=== PATIENT | male | born 1955 | race Caucasian/White ===

== ENCOUNTER 2017-08-01 09:13 | Observation (INO) | payer OTHER ==
[~2017-08-01] VITALS: Ht 185.4 cm; Wt 80.0 kg
[2017-08-01 09:15] VITALS: BP 242/125; PULSE 84; RESP 17; TEMP 97.8; O2SAT 100
--- NOTE | 2017-08-01 09:55 | PD ---
HPI Chief Complaint: Dizziness Time Seen by Provider: 09:55 Travel History International Travel<30 days: No Contact w/Intl Traveler<30days: No Traveled to known affect area: No History of Present Illness HPI 62-year-old male came to the emergency room with history of feeling lightheaded and off balance for past 2 weeks. Patient says this is progressively worsening. He started checking his blood pressure and noticed that his blood pressure is going high. Patient says he felt exactly the same way when he had his heart attack in 1999. He was scared and anxious but finally decided to come to the emergency room today. His blood pressure in triage was 220. Patient says he's been taking all his medications like he supposed to. He has some chest discomfort in the upper part of his chest. No history of syncopal episode. Pain is on and off with no identified aggravating or relieving factors. He seems very anxious. PFSH Past Medical History Narrative Medical List of his past medical, surgical, social and family history is reviewed from the nursing note. Cardiac Catheterization: Yes (1 STENT LEFT LAD) Cardiovascular Problems: Yes (STENTS, HTN, ABLATION) Chest Pain: Yes Diminished Hearing: No Hypertension: Yes Influenza Vaccination: No Social History Alcohol Use: Yes (BEER AND WINE OCCASIONALLY ) Tobacco Use: No Substance Use: No Allergies-Medications (Allergen,Severity, Reaction): Coded Allergies: erythromycin base (Verified Allergy, Unknown, 08/01/17) Comments List of his allergies reviewed from the nursing note. Reported Meds & Prescriptions Reported Meds & Active Scripts Active Labetalol (Labetalol HCl) 100 Mg Tab 100 Mg PO BID 30 Days Reported Testosterone Cypionate Inj (Testosterone Cypionate) 200 Mg/Ml Inj 200 Mg IM MONTHLY Aspirin Low Dose (Aspirin) 81 Mg Chew 81 Mg CHEW DAILY Crestor (Rosuvastatin Calcium) 20 Mg Tab 20 Mg PO DAILY Cardizem CD 24 HR (Diltiazem CD 24 HR) 120 Mg Caper 120 Mg PO DAILY Hydrochlorothiazide 25 Mg Tab 25 Mg PO DAILY Diovan (Valsartan) 320 Mg Tab 320 Mg PO DAILY Tekturna (Aliskiren) 300 Mg Tab 300 Mg PO DAILY Narrative Medication List of his home medications reviewed from the nursing note. Review of Systems Except as stated in HPI: all other systems reviewed are Neg Cardiovascular: Positive: Chest Pain or Discomfort Physical Exam Narrative GENERAL: Awake, alert, anxious, mild distress SKIN: Focused skin assessment warm/dry. HEAD: Atraumatic. Normocephalic. EYES: Pupils equal and round. No scleral icterus. No injection or drainage. ENT: No nasal bleeding or discharge. Mucous membranes pink and moist. NECK: Trachea midline. No JVD. CARDIOVASCULAR: Regular rate and rhythm. No murmur appreciated. RESPIRATORY: No accessory muscle use. Clear to auscultation. Breath sounds equal bilaterally. GASTROINTESTINAL: Abdomen soft, non-tender, nondistended. Hepatic and splenic margins not palpable. MUSCULOSKELETAL: No obvious deformities. No clubbing. No cyanosis. No edema. NEUROLOGICAL: Awake and alert. No obvious cranial nerve deficits. Motor grossly within normal limits. Normal speech. PSYCHIATRIC: Appropriate mood and affect; insight and judgment normal. Data Data Last Documented VS Orders Orders Electrocardiogram (08/01/17 09:57) Basic Metabolic Panel (Bmp) (08/01/17 09:57) Ckmb (Isoenzyme) Profile (08/01/17 09:57) Complete Blood Count With Diff (08/01/17 09:57) Magnesium (Mg) (08/01/17 09:57) Prothrombin Time / Inr (Pt) (08/01/17 09:57) Act Partial Throm Time (Ptt) (08/01/17 09:57) Troponin I (08/01/17 09:57) Chest, Single Ap (08/01/17 09:57) Ecg Monitoring (08/01/17 09:57) Bilateral Bp Monitoring (08/01/17 09:57) Iv Access Insert/Monitor (08/01/17 09:57) Oximetry (08/01/17 09:57) Oxygen Administration (08/01/17 09:57) Sodium Chloride 0.9% Flush (Ns Flush) (08/01/17 10:00) Clonidine (Catapres) (08/01/17 10:00) Ct Brain W/O Iv Contrast(Rout) (08/01/17 ) Drug Screen, Random Urine (08/01/17 09:57) Labetalol Inj (Trandate Inj) (08/01/17 10:15) CKMB (08/01/17 10:15) CKMB% (08/01/17 10:15) Admit Order (Ed Use Only) (08/01/17 11:03) Labs Laboratory Tests Test 08/01/17 10:15 White Blood Count 6.9 TH/MM3 Red Blood Count 4.63 MIL/MM3 Hemoglobin 15.2 GM/DL Hematocrit 44.6 % Mean Corpuscular Volume 96.3 FL Mean Corpuscular Hemoglobin 32.9 PG Mean Corpuscular Hemoglobin Concent 34.2 % Red Cell Distribution Width 13.3 % Platelet Count 268 TH/MM3 Mean Platelet Volume 8.4 FL Neutrophils (%) (Auto) 72.3 % Lymphocytes (%) (Auto) 16.5 % Monocytes (%) (Auto) 10.3 % Eosinophils (%) (Auto) 0.4 % Basophils (%) (Auto) 0.5 % Neutrophils # (Auto) 5.0 TH/MM3 Lymphocytes # (Auto) 1.1 TH/MM3 Monocytes # (Auto) 0.7 TH/MM3 Eosinophils # (Auto) 0.0 TH/MM3 Basophils # (Auto) 0.0 TH/MM3 CBC Comment AUTO DIFF Differential Comment AUTO DIFF CONFIRMED Prothrombin Time 9.9 SEC Prothromb Time International Ratio 1.0 RATIO Activated Partial Thromboplast Time 23.3 SEC Blood Urea Nitrogen 13 MG/DL Creatinine 0.91 MG/DL Random Glucose 99 MG/DL Calcium Level 9.1 MG/DL Magnesium Level 2.3 MG/DL Sodium Level 139 MEQ/L Potassium Level 3.8 MEQ/L Chloride Level 103 MEQ/L Carbon Dioxide Level 29.5 MEQ/L Anion Gap 7 MEQ/L Estimat Glomerular Filtration Rate 84 ML/MIN Total Creatine Kinase 139 U/L Creatine Kinase MB 2.8 NG/ML Troponin I LESS THAN 0.02 NG/ML Urine Opiates Screen NEG Urine Barbiturates Screen NEG Urine Amphetamines Screen NEG Urine Benzodiazepines Screen NEG Urine Cocaine Screen NEG Urine Cannabinoids Screen NEG MDM Medical Decision Making Medical Screen Exam Complete: Yes Emergency Medical Condition: Yes Medical Record Reviewed: Yes Interpretation(s) Twelve-lead EKG was reviewed by me. Normal sinus rhythm, normal axis, nonspecific ST-T wave changes, PVC. Heart rate of 80 bpm. Differential Diagnosis ACS, non-STEMI, hypertensive urgency Narrative Course 10:58 AM patient was given 20 mg of IV labetalol and by mouth clonidine for his hypertension. Blood test results of back and within acceptable limits. Head CT is negative. Given his significant risk factors I would like to admit him to the chest pain center to be seen by the contracts advisor and rule out ACS. Procedures EKG Prior to Arrival: No Diagnosis Primary Impression: Chest pain Qualified Codes: R07.9 - Chest pain, unspecified Additional Impression: Uncontrolled hypertension Admitting Information Admitting Physician Requests: Observation Scripts Labetalol (Labetalol) 100 Mg Tab 100 MG PO BID for Blood Pressure Management for 30 Days, #60 TAB 0 Refills Prov: Jayme Hoffmann 08/01/17 Shikha Calero MD Aug 01, 2017 09:55
[2017-08-01] MEDS ORDERED: SODIUM CHLORIDE 0.9% FLUSH 10 ML FLUSH IVF PRN (10:00)
[2017-08-01] MEDS ORDERED: cloNIDine HCL 0.2 MG TAB PO ONE (10:00)
[2017-08-01] MEDS ORDERED: [UNRECOGNIZED DRUG - CODE] PO (10:06)
[2017-08-01] MEDS ORDERED: DIOV320T PO (10:06)
[2017-08-01] MEDS ORDERED: CARD120C4 PO (10:06)
[2017-08-01] MEDS ORDERED: HYDR25TA5 PO (10:06)
[2017-08-01] MEDS ORDERED: ASPI81CH6 CHEW (10:06)
[2017-08-01] MEDS ORDERED: ROSU20 PO (10:06)
[2017-08-01] MEDS ORDERED: LABETALOL HCL 100 MG/20 ML VIAL IV PUSH ONE (10:15)
[2017-08-01 10:26] LABS: BASOPHIL % 0.5 % (0.0-2.0); EOSINOPHIL % 0.4 % (0.0-4.0); HEMATOCRIT 44.6 % (39.0-51.0); LYMPH % 16.5 % (9.0-44.0); LYMPHOCYTE # 1.1 TH/MM3 (1.0-4.8); MEAN CELL VOLUME 96.3 FL (80.0-100.0); MEAN CORPUSCULAR HEMOGLOBIN 32.9 PG (27.0-34.0); MEAN CORPUSCULAR HGB CONC 34.2 % (32.0-36.0); MONO % 10.3 % (0.0-8.0); NEUT % 72.3 % (16.0-70.0); PLATELET COUNT 268 TH/MM3 (150-450); RED BLOOD COUNT 4.63 MIL/MM3 (4.50-5.90); RED CELL DISTRIBUTION WIDTH 13.3 % (11.6-17.2); WHITE BLOOD COUNT 6.9 TH/MM3 (4.0-11.0)
[2017-08-01 10:27] LABS: HEMO FLAGS AUTO DIFF
--- NOTE | 2017-08-01 10:28 | RADRPT ---
EXAM DATE/TIME: 08/01/2017 10:18 [facility] COMPARISON: No previous studies available for comparison. INDICATIONS : Pressure in head, dizziness, hypertension. RADIATION DOSE: 32.65 CTDIvol (mGy) MEDICAL HISTORY : Cardiovascular disease. Hypertension. SURGICAL HISTORY : None. ENCOUNTER: Initial ACUITY: 1 day PAIN SCALE: 2/10 LOCATION: Bilateral temporal TECHNIQUE: Multiple contiguous axial images were obtained of the head. Using automated exposure control and adj ustment of the mA and/or kV according to patient size, radiation dose was kept as low as reasonably a chievable to obtain optimal diagnostic quality images. DICOM format image data is available electro nically for review and comparison. FINDINGS: CEREBRUM: The ventricles are mildly enlarged for age. No evidence of midline shift, mass lesion, hemorrhage or acute infarction. No extra-axial fluid collections are seen. POSTERIOR FOSSA: The cerebellum and brainstem are intact. The 4th ventricle is midline. The cerebellopontine angle i s unremarkable. EXTRACRANIAL: The visualized portion of the orbits is intact. SKULL: The calvaria is intact. No evidence of skull fracture. CONCLUSION: 1. Mild ventriculomegaly 2. No evidence of acute infarct, hemorrhage, mass or edema. Bijan Arias MD on August 01, 2017 at 10:24 Board Certified Radiologist. This report was verified electronically.
[2017-08-01 10:34] VITALS: BP 178/108; PULSE 69; RESP 13; O2SAT 99
[2017-08-01 10:37] LABS: APTT (PATIENT) 23.3 SEC (24.3-30.1); PROTHROMBIN TIME - PATIENT 9.9 SEC (9.8-11.6)
[2017-08-01 10:50] LABS: ANION GAP 7 MEQ/L (5-15); BICARBONATE 29.5 MEQ/L (21.0-32.0); BLOOD UREA NITROGEN 13 MG/DL (7-18); CHLORIDE 103 MEQ/L (98-107); GLOMERULAR FILTRATION RATE 84 ML/MIN (>89); MAGNESIUM 2.3 MG/DL (1.5-2.5); POTASSIUM 3.8 MEQ/L (3.5-5.1); SODIUM (NA) 139 MEQ/L (136-145)
--- NOTE | 2017-08-01 10:52 | RADRPT ---
EXAM DATE/TIME: 08/01/2017 10:10 [facility] COMPARISON: No previous studies available for comparison. INDICATIONS : Chest pain. MEDICAL HISTORY : Cardiovascular disease. Hypertension SURGICAL HISTORY : None. ENCOUNTER: Initial ACUITY: 1 day PAIN SCORE: 3/10 LOCATION: Left upper chest FINDINGS: A single view of the chest demonstrates the lungs to be symmetrically aerated without evidence of mas s, infiltrate or effusion. The cardiomediastinal contours are unremarkable. Osseous structures are intact. CONCLUSION: No acute disease. Bijan Arias MD on August 01, 2017 at 10:50 Board Certified Radiologist. This report was verified electronically.
[2017-08-01 10:54] LABS: CREATINE KINASE 139 U/L (39-308)
[2017-08-01] MEDS ORDERED: TEST200I12 IM (10:54)
[2017-08-01 10:55] VITALS: BP 167/99; PULSE 70; RESP 12; O2SAT 99
[2017-08-01 11:06] LABS: CKMB 2.8 NG/ML (0.5-3.6)
[2017-08-01 11:08] LABS: SCAN/DIFF AUTO DIFF CONFIRMED
[2017-08-01] MEDS ORDERED: RESP: ALBUTEROL 2.5 MG/IPRATROPIUM 0.5 MG NEB (PRN) INH (11:45)
[2017-08-01] MEDS ORDERED: ACETAMINOPHEN 500 MG CPLT PO PRN (11:45)
[2017-08-01] MEDS ORDERED: ONDANSETRON HCL 4 MG/2 ML VIAL IV PUSH PRN (11:45)
[2017-08-01] MEDS ORDERED: ALPRAZolam 0.25 MG TAB PO PRN (11:45)
[2017-08-01] MEDS ORDERED: ACETAMINOPHEN/HYDROcodone 325 MG/7.5 MG TAB PO PRN (11:45)
[2017-08-01] MEDS ORDERED: cloNIDine HCL 0.1 MG TAB PO PRN (11:45)
[2017-08-01] MEDS ORDERED: PANTOPRAZOLE SOD 40 MG DELAYED RELEASE TAB PO SCH (12:00)
[2017-08-01 12:03] VITALS: BP 158/85
--- NOTE | 2017-08-01 12:34 | HHI.HP ---
HPI Primary Care Physician Jarocho Laureano MD Chief Complaint High blood pressure History of Present Illness This is a 62-year-old male with history of CAD, hypertension, hyperlipidemia that presents to ED with complaints of elevated blood pressure, dizziness, and feeling antsy. Patient states his blood pressure has been running higher than normal over last 2 or 3 weeks. He discontinued all his medications as directed by his primary care physician. He saw the physician that was covering for his primary care doctor yesterday for elevated blood pressures. Medications were not changed, states he is given literature to explain him signs and symptoms of a stroke. His pressures have continued to be high. This morning he felt that his high so rechecked it and it was 167/94 at home. He was able to go to the gym but didn't stay long. Start feeling dizzy and felt very antsy. Became concerned and came to the emergency room. Denies having chest discomfort. He felt a little short of breath. No nausea or diaphoresis. Was having pressure has had which states that has improved since being in the ED. His initial blood pressure reading in the emergency part was 242/125. The ED physician gave 20 mg of IV labetalol. Pressure currently is 152/95. As mentioned above, he has CAD. States he has not seen a surgical dressing maker in about 5 years. Last stress test was 5 or 6 years ago. Believes was okay. Has not had a heart catheterization since 1999 which time he had a stent to the LAD. Feeling antsy concerned her. He states he thought that way when he had his heart attack. Although he also had pressure in his chest when he had his heart attack. Denies having any pressure or other types of discomforts in his chest. Denies recent travel. Denies recent illness. He thinks some of it may be related to work. States he is working 3 jobs which he thinks may be too much format his age. Review of Systems General: Patient denies fevers, chills recent, and recent travel HEENT: Complains of a pressure headache. Patient denies sore throat and difficulty swallowing. Cardiovascular: Has the chest discomfort as mentioned above. Denies sensation of heart beating rapidly or irregularly. No syncope. Respiratory: He was short of breath. Denies of breath or inspirational chest discomfort. Denies coughing wheezing or hemoptysis. GI: Patient denies nausea, vomiting, diarrhea, abdominal pain, bloody stools. Musculoskeletal: Patient denies joint pain or edema. Denies calf pain or edema. Neurovascular: Complains of pressure headache but states that has improved as his blood pressure .is coming down Patient denies numbness, tingling, weakness in extremities. [place] dizzy. Endocrine: Denies polyuria and polydipsia. Hematologic: Denies easy bruising. Skin: Denies rash or itching. Past Family Social History Allergies: Coded Allergies: erythromycin base (Verified Allergy, Unknown, 08/01/17) Past Medical History CAD with reported stent of the LAD in 1999. Hypertension, hyperlipidemia, paroxysmal atrial fibrillation with an ablation about 6 years ago. Believes he has been in sinus rhythm since. Past Surgical History Cardiac catheterization with stenting in 1999. An ablation for A. fib about 6 years ago. Reported Medications Reported Meds & Active Scripts Active Reported Testosterone Cypionate Inj (Testosterone Cypionate) 200 Mg/Ml Inj 200 Mg IM MONTHLY Aspirin Low Dose (Aspirin) 81 Mg Chew 81 Mg CHEW DAILY Crestor (Rosuvastatin Calcium) 20 Mg Tab 20 Mg PO DAILY Cardizem CD 24 HR (Diltiazem CD 24 HR) 120 Mg Caper 120 Mg PO DAILY Hydrochlorothiazide 25 Mg Tab 25 Mg PO DAILY Diovan (Valsartan) 320 Mg Tab 320 Mg PO DAILY Tekturna (Aliskiren) 300 Mg Tab 300 Mg PO DAILY Active Ordered Medications Current Medications Medications (Trade) Dose Ordered Sig/Purnima Route Start Time Stop Time Status Last Admin (NS Flush) 2 ml UNSCH PRN IVF 08/01/17 10:00 (Tylenol) 500 mg Q4H PRN PO 08/01/17 11:45 (Combs 7.5-325 Mg) 1 tab Q4H PRN PO 08/01/17 11:45 (Zofran Inj) 4 mg Q6H PRN IV PUSH 08/01/17 11:45 (Protonix) 40 mg DAILY PO 08/01/17 12:00 (Aspirin) 325 mg DAILY PO 08/02/17 09:00 (Xanax) 0.25 mg Q8H PRN PO 08/01/17 11:45 (Duoneb Neb) 1 ampule Q4HR NEB PRN INH 08/01/17 11:45 (Catapres) 0.1 mg Q4H PRN PO 08/01/17 11:45 (Tekturna) 300 mg DAILY PO 08/02/17 09:00 UNV (Cardizem Cd) 120 mg DAILY PO 08/02/17 09:00 (Hydrodiuril) 25 mg DAILY PO 08/02/17 09:00 UNV (Diovan) 320 mg DAILY PO 08/02/17 09:00 UNV (Lipitor) 40 mg DAILY PO 08/02/17 09:00 Family History There is family history of CAD. Social History Patient smokes cigarettes in high school but has not smoked since. He has on average 2-3 beers or a couple glass of wine or 5 times a week. Denies illicit drugs. Physical Exam Vital Signs Vital Signs Date Time Temp Pulse Resp B/P (MAP) Pulse Ox O2 Delivery O2 Flow Rate FiO2 08/01/17 12:03 78 15 158/85 (109) 100 08/01/17 10:55 70 12 167/99 (121) 99 Room Air 08/01/17 10:34 69 13 178/108 (131) 99 Room Air 08/01/17 10:23 99 Room Air 08/01/17 09:32 99 Room Air 08/01/17 09:15 97.8 84 17 242/125 (164) 100 Room Air Physical Exam GENERAL: This is a well-nourished, well-developed patient, in no apparent distress. Patient speaks in clear complete sentences. Patient is pleasant. HEENT: Head is atraumatic and normocephalic. Neck is supple without lymphadenopathy and trachea is midline. No JVD or carotid bruits. CARDIOVASCULAR: Regular rate and rhythm without murmurs, gallops, or rubs. RESPIRATORY: Clear to auscultation. Breath sounds equal bilaterally. No wheezes , rales, or rhonchi. Chest wall is nontender. No use of accessory muscles. GASTROINTESTINAL: Abdomen is nontender, nondistended. Abdomen soft. No obvious pulsatile mass or bruit. No CVA tenderness. Strong femoral pulses bilaterally. Normal bowel sounds in all quadrants. MUSCULOSKELETAL: Patient is moving upper and lower extremities freely. No calf tenderness or edema, no Homans sign. Strong pulses in upper and lower extremities. NEUROLOGICAL: Patient is alert and oriented. Cranial nerves 2-12 are grossly intact. No focal deficits and speech is clear. SKIN: No rash and turgor is normal. Laboratory Laboratory Tests Test 08/01/17 10:15 White Blood Count 6.9 Red Blood Count 4.63 Hemoglobin 15.2 Hematocrit 44.6 Mean Corpuscular Volume 96.3 Mean Corpuscular Hemoglobin 32.9 Mean Corpuscular Hemoglobin Concent 34.2 Red Cell Distribution Width 13.3 Platelet Count 268 Mean Platelet Volume 8.4 Neutrophils (%) (Auto) 72.3 Lymphocytes (%) (Auto) 16.5 Monocytes (%) (Auto) 10.3 Eosinophils (%) (Auto) 0.4 Basophils (%) (Auto) 0.5 Neutrophils # (Auto) 5.0 Lymphocytes # (Auto) 1.1 Monocytes # (Auto) 0.7 Eosinophils # (Auto) 0.0 Basophils # (Auto) 0.0 CBC Comment AUTO DIFF Differential Comment AUTO DIFF CONFIRMED Prothrombin Time 9.9 Prothromb Time International Ratio 1.0 Activated Partial Thromboplast Time 23.3 Blood Urea Nitrogen 13 Creatinine 0.91 Random Glucose 99 Calcium Level 9.1 Magnesium Level 2.3 Sodium Level 139 Potassium Level 3.8 Chloride Level 103 Carbon Dioxide Level 29.5 Anion Gap 7 Estimat Glomerular Filtration Rate 84 Total Creatine Kinase 139 Creatine Kinase MB 2.8 Troponin I LESS THAN 0.02 Urine Opiates Screen NEG Urine Barbiturates Screen NEG Urine Amphetamines Screen NEG Urine Benzodiazepines Screen NEG Urine Cocaine Screen NEG Urine Cannabinoids Screen NEG Result Diagram: 08/01/17 1015 08/01/17 1015 Imaging Last 48 hours Impressions Chest X-Ray 08/01/17 0957 Signed Impressions: Service Date/Time: July 10:10 - CONCLUSION: No acute disease. Bijan Arias MD Head CT 08/01/17 0000 Signed Impressions: Service Date/Time: July 10:18 - CONCLUSION: 1. Mild ventriculomegaly 2. No evidence of acute infarct, hemorrhage, mass or edema. Bijan Arias MD Course Initial EKG is sinus rhythm without significant ST segment depressions or elevations. Caprini VTE Risk Assessment Caprini VTE Risk Assessment: Mod/High Risk (score >= 2) Caprini Risk Assessment Model Point Value = 1 Point Value = 2 Point Value = 3 Point Value = 5 Age 41-60 Minor surgery BMI > 25 kg/m2 Swollen legs Varicose veins or History of unexplained or recurrent spontaneous Oral contraceptives or hormone replacement Sepsis (< 1 month) Serious lung disease, including pneumonia (< 1 month) Abnormal pulmonary function Acute myocardial infarction Congestive heart failure (< 1 month) History of inflammatory bowel disease Medical patient at bed rest Age 61-74 Arthroscopic surgery Major open surgery (> 45 min) Laparoscopic surgery (> 45 min) Malignancy Confined to bed (> 72 hours) Immobilizing plaster cast Central venous access Age >= 75 History of VTE Family history of VTE Factor V Leiden Prothrombin [id number] Lupus anticoagulant Anticardiolipin antibodies Elevated serum homocysteine Heparin-induced thrombocytopenia Other congenital or acquired thrombophilia Stroke (< 1 month) Elective arthroplasty Hip, pelvis, or leg fracture Acute spinal cord injury (< 1 month) Prophylaxis Regimen Total Risk Factor Score Risk Level Prophylaxis Regimen 0-1 Low Early ambulation 2 Moderate Order ONE of the following: *Sequential Compression Device (SCD) *Heparin 5000 units SQ BID 3-4 Higher Order ONE of the following medications: *Heparin 5000 units SQ TID *Enoxaparin/Lovenox 40 mg SQ daily (WT < 150 kg, CrCl > 30 mL/min) *Enoxaparin/Lovenox 30 mg SQ daily (WT < 150 kg, CrCl > 10-29 mL/min) *Enoxaparin/Lovenox 30 mg SQ BID (WT < 150 kg, CrCl > 30 mL/min) AND/OR *Sequential Compression Device (SCD) 5 or more Highest Order ONE of the following medications: *Heparin 5000 units SQ TID (Preferred with Epidurals) *Enoxaparin/Lovenox 40 mg SQ daily (WT < 150 kg, CrCl > 30 mL/min) *Enoxaparin/Lovenox 30 mg SQ daily (WT < 150 kg, CrCl > 10-29 mL/min) *Enoxaparin/Lovenox 30 mg SQ BID (WT < 150 kg, CrCl > 30 mL/min) AND *Sequential Compression Device (SCD) Assessment and Plan Assessment and Plan * Hypertension: Patient's blood pressure has improved after getting IV labetalol in the ED. We will resume his medication and continue to monitor. Patient was evaluated by Dr. Bill Avalos of cardiology and the chest pain center and at that time further plan will be determined. * Hyperlipidemia: Continue current medication. Patient is stable at this time. He is agreeable to this plan. Jayme Hoffmann Aug 01, 2017 12:33
--- NOTE | 2017-08-01 13:46 | EKG ---
Date Performed: 08/01/2017 Time Performed: 09:31:55 PTAGE: 62 years EKG: Sinus rhythm WITH OCCASIONAL VENTRICULAR PREMATURE COMPLEXES POSSIBLE LEFT VENTRICULAR HYPERTROPHY ABNORMAL ECG NO PREVIOUS TRACING DOCTOR: Rylie Ha Interpretating Date/Time 08/01/2017 13:45:17
[2017-08-01 14:24] LABS: CREATINE KINASE 93 U/L (39-308)
[2017-08-01] MEDS ORDERED: LABE100T2 PO (15:55)
--- NOTE | 2017-08-01 15:56 | HHI.DCPOC ---
Discharge Care Plan Diagnosis: (1) Hypertension (2) Hyperlipidemia (3) CAD (coronary artery disease) (4) H/O heart artery stent Goals to Promote Your Health * To prevent worsening of your condition and complications * To maintain your health at the optimal level Directions to Meet Your Goals Take your medications as prescribed Follow your dietary instruction Follow activity as directed Keep your appointments as scheduled Take your immunizations and boosters as scheduled If your symptoms worsen call your PCP, if no PCP go to Urgent Care Center or Emergency Room Smoking is Dangerous to Your Health. Avoid second hand smoke Call the 24-hour hour crisis hotline for domestic abuse at Jayme Hoffmann Aug 01, 2017 15:56
--- NOTE | 2017-08-02 08:46 | EKG ---
Date Performed: 08/01/2017 Time Performed: 13:19:09 PTAGE: 62 years EKG: Sinus rhythm NORMAL ECG PREVIOUS TRACING : 08/01/2017 09.31 Since previous tracing, no significant change noted DOCTOR: Bill Avalos Interpretating Date/Time 08/02/2017 08:46:14
[2017-08-02] MEDS ORDERED: VALSARTAN 160 MG TAB PO SCH (09:00)
[2017-08-02] MEDS ORDERED: HYDROCHLOROTHIAZIDE 25 MG TAB PO SCH (09:00)
[2017-08-02] MEDS ORDERED: ALISKIREN HEMIFUMARATE 300 MG PO SCH (09:00)
[2017-08-02] MEDS ORDERED: DILTIAZEM-CD 120 MG CAP ER PO SCH (09:00)
[2017-08-02] MEDS ORDERED: ATORVASTATIN 40 MG TAB PO SCH (09:00)
[2017-08-02] MEDS ORDERED: ASPIRIN 325 MG TAB PO SCH (09:00)
--- NOTE | 2017-08-02 09:02 | TR ---
Date Performed: 08/01/2017 Time Performed: 15:22:42 DOCTOR: Blil Avalos DRUG LIST: CLINICAL HISTORY: REASON FOR TEST: Chest pain REASON FOR ENDING: OBSERVATION: CONCLUSION: RENATO PROTOCOL. NO CP OR SOB. TEST STOPPED AFTER REACHING GOAL HR SECONDARY CHRONIC BILAT KNEE PAIN.Maximum TU=668 % Max HR Achieved=86.0% Maximum YB=663/78 Total Exercise Time=10:02 COMMENTS: Patient exercised using the Renato protocol. No electrocardiographic changes were seen to suggest ischemia. Hemodynamic response to exercise was normal. No significant arrhythmia was prese nt.
== END 2017-08-01 17:37 | disposition home or self-care (01) ==
LOC: NEPE 09:13 → NEDA 11:06 → NEPGCP 12:19
PROVIDERS: ADMIT Internal Medicine Cardiovascular Disease; ATTEND Internal Medicine Cardiovascular Disease
DX: I10 Essential (primary) hypertension (principal); E78.5 Hyperlipidemia, unspecified; I25.10 Atherosclerotic heart disease of native coronary artery without angina pectoris; R06.02 Shortness of breath; I25.2 Old myocardial infarction; I48.0 Paroxysmal atrial fibrillation; R07.89 Other chest pain; R51 Headache; R94.31 Abnormal electrocardiogram [ECG] [EKG]; Z87.891 Personal history of nicotine dependence; Z95.5 Presence of coronary angioplasty implant and graft
CPT/HCPCS: 70450; 71010; 80048; 80307; 82550; 82552; 83735; 84484; 85025; 85610; 85730; 93005; 93017; 96374; 99285; G0378